=== PATIENT | male | born 1965 | race Caucasian/White ===

== ENCOUNTER 2017-11-19 10:39 | Emergency (ER) | payer SELFPAY ==
[2017-11-19 10:39] VITALS: BP 171/91; PULSE 68; RESP 22; TEMP 36.7; O2SAT 98
--- NOTE | 2017-11-19 10:59 | DI.RAD_ITS ---
SYMPTOMS/DIAGNOSIS: RIGHT LOW BACK PAIN, PREVIOUS HARDWARE LUMBOSACRAL SPINE: The patient is status post posterior fusion at the L5-S1 level with pedicle screws and rods. The vertebral bodies are intact. There is disc narrowing at L5-S1 where discogenic sclerosis is apparent. Also, there is mild narrowing of the L4-5 disc interspace. The pedicles, spinous and transverse processes appear intact. The sacrum and sacroiliac joints are unremarkable. SUMMARY: Postsurgical changes involving the lower lumbar spine are demonstrated. There is some narrowing of the L4-5 disc interspace. There is no evidence of a fracture or dislocation.
--- NOTE | 2017-11-19 11:01 | ED.GENADUL_ITS ---
Discharge Plan Disposition Patient Disposition: HOME Condition: Improving Discharge Details Chief Complaint: Nk/Back Pain Clinical Impression: Lumbar strain Reason For Visit: VALERI Primary Care Provider: [facility] Provider: Brendon Marsh Home Meds and New Rx's Prescriptions: New methocarbamol 500 mg tablet 500 mg PO QID PRN (Reason: back pain) Qty: 10 RF: 0 oxycodone 5 mg capsule 5 mg PO Q4H PRN (Reason: severe pain) Qty: 7 RF: 0 Continue lisinopril 5 mg Tablet 5 mg PO DAILY RF: 0 mirtazapine 15 mg Tablet 15 mg PO HS RF: 0 Discharge Instructions Instructions: Low Back Strain (ED) Additional Instructions: Home to rest today. No lifting greater than 8 pounds. Please follow-up with physical therapy as prescribed. Remove the Lidoderm patch in 12 hours. May continue regular medications and use the prescribed medications if needed for severe pain. Return to the emergency department for worsening discomfort or any other acute concerns Stand Alone Forms: Physical Therapy Referral Medical Decision Making 52-year-old male with chronic low back pain status post previous fixation. He presents with abrupt onset of recurrent pain after bending over and pulling out a tire iron. He has normal motor strength and sensation throughout the lower extremity with positive reflexes that are symmetric. Patient was given parenteral analgesia and referred for x-ray to rule out underlying fracture or disruption of hardware. The radiographs are unremarkable. Following medications patient is able to ambulate with improvement of his pain. He has good heel strike and no focal motor or neurologic deficits. We will treat with topical Lidoderm for 12 hours, I did consented for the use of narcotic analgesia and prescribed him a small number. He also prescribed methocarbamol. I will refer him to physical therapy. Stable for outpatient management at this time per HPI General Mode of arrival: EMS . Date/Time Provider Initiated Documentation: 11/19/17 10:48 . Limitations to Documentation: no limitations . Information obtained by: patient and EMS . History of Present Illness 52 year old M presents to the emergency department with the chief complaint of Back pain, described as severe, Quality is described as constant, and is localized to the back and right. Patient started experiencing this hour(s) and it has been constant. No relieving factors improve symptom(s), No exacerbating factors reported . Patient did receive the following treatments prior to arrival, other (FentANYL) HPI Narrative: 52-year-old male with history of previous lumbar spine fixation, states he was bent over pulling on a tire iron and felt a snap in his low back. Since that time he said constant, severe pain. Did not have numbness, tingling, weakness. Related Data Home Medications Medication Instructions Recorded Confirmed lisinopril 5 mg PO DAILY 11/19/17 11/19/17 methocarbamol 500 mg PO QID PRN #10 tab 11/19/17 mirtazapine 15 mg PO HS 11/19/17 11/19/17 oxycodone 5 mg PO Q4H PRN #7 cap 11/19/17 Previous Rx's Medication Instructions Recorded methocarbamol 500 mg PO QID PRN #10 tab 11/19/17 oxycodone 5 mg PO Q4H PRN #7 cap 11/19/17 Allergies Allergy/AdvReac Type Severity Reaction Status Date / Time acetaminophen Allergy Unverified 11/19/17 10:46 General Stated Complaint: Nk/Back Pain THI: 3 PFSH Social History Smoking/Tobacco Use Status: Current every day Exam Narrative Exam Narrative: GEN: awake, alert, oriented 3. Pleasant, well groomed, interactive. HEAD: Normocephalic, atraumatic ENT: Mucous membranes moist, oropharynx unremarkable, External ear exam unremarkable EYES: PERRL, EOMI NECK: Full ROM, no SELINA, no menigismus CHEST/RESP: Nontender, clear to auscultation bilateral, no wheeze/rhonchi/rales CARDIOVASCULAR: RRR, no murmur, rub natasha. 2+ Rad pulse bilateral Back: Tender in the lumbar region without focality. Paraspinous muscular spasm present ABDOMEN: Soft, nontender, no mass. +Bowel sounds EXT: Full ROM, no edema, no rash Neuro: Grossly normal neurologic exam, conversant, interactive. Motor 5 out of 5, reflex 1+ at the patella and ankle bilaterally. Sensation including cell distribution is intact Psych: Speech fluent, thoughts congruent, affect normal Course Vital Signs Temperature 36.7 C 11/19/17 10:39 Pulse 68 11/19/17 10:39 Respiratory Rate 22 11/19/17 10:39 Blood Pressure 171/91 H 11/19/17 10:39 Pulse Oximetry 98 11/19/17 10:39 Temperature 36.7 C 11/19/17 10:39 Temperature Source Skin 11/19/17 10:39 Pulse 68 11/19/17 10:39 Respiratory Rate 22 11/19/17 10:39 Respiratory Effort 11/19/17 10:48 Blood Pressure 171/91 H 11/19/17 10:39 Blood Pressure Position Supine 11/19/17 10:39 Pulse Oximetry 98 11/19/17 10:39 Pain Level 7 11/19/17 10:50
[2017-11-19] MEDS: Ketorolac 30 MG/ML VIAL IVP (11:40)
[2017-11-19] MEDS: HYDROmorphone 2 MG/ML VIAL 1 MG IVP ×2 (11:43→13:57)
[2017-11-19 11:50] LABS: Abs Immature Grans 0.01 k/cumm (0.0-0.09); Absolute Basophil Count 0.04 k/cumm (0.0-0.2); Absolute Eosinophil Count 0.19 k/cumm (0.0-0.7); Absolute Monocyte Count 0.81 k/cumm (0.11-0.7); Absolute Neutrophil Count 4.89 k/cumm (1.2-6.7); Basophils % 0.5; Eosinophils % 2.4; HCT 45.7 % (40.0-50.0); HGB 15.8 g/dL (13.5-17.5); Immature Grans % 0.1; Lymphocytes % 24.2; Mean Corp. HGB Concentration 34.6 g/dL (32.0-36.0); Mean Corpuscular Hemoglobin 32.8 pg (27.0-33.0); Monocytes % 10.3; Neutrophils % 62.5; Platelet Count 206 x1000/uL (130-400); RBC 4.81 m/cumm (4.50-6.00); White Blood Cell Count 7.84 k/cumm (4.4-10.8)
[2017-11-19 12:00] LABS: Anion Gap 5.8 mmol/L (3-11); BUN 16 mg/dL (7-18); CO2 28.2 mmol/L (21.0-32.0); CREATININE 1.06 mg/dL (0.70-1.30); Calcium 8.2 mg/dL (8.5-10.1); Chloride 106 mmol/L (98-107); Glucose 95 mg/dL (70-100); Sodium 140 mmol/L (136-145)
[2017-11-19 13:23] VITALS: BP 173/109; RESP 20; TEMP 36.8; O2SAT 96
[2017-11-19] MEDS: Lidocaine 5% Patch 1 PATCH TP (14:00)
== END 2017-11-19 14:53 | disposition home or self-care (01) ==
PROVIDERS: Emergency Provider Emergency Medicine
DX: S39.012A Strain of muscle, fascia and tendon of lower back, initial encounter (principal); X50.9XXA Other and unspecified overexertion or strenuous movements or postures, initial encounter; E11.9 Type 2 diabetes mellitus without complications; I10 Essential (primary) hypertension
CPT/HCPCS: 36415; 80048; 96374; 96375; 96376; 99284; 72110; 85025; J1885

== ENCOUNTER 2018-02-16 21:30 | Emergency (ER) | payer OTHER, SELFPAY ==
[2018-02-16] VITALS (17 sets, daily range): BP systolic 116–156; BP diastolic 57–88; PULSE 56–67; RESP 11–24; TEMP 36.8; O2SAT 90–97
--- NOTE | 2018-02-16 21:30 | DI.RAD_ITS ---
SYMPTOMS/DIAGNOSIS: LEFT-SIDED CHEST PAIN PORTABLE AP CHEST: The heart is not enlarged. The lungs appear grossly clear and well expanded. CONCLUSION: No evidence of acute disease.
[2018-02-16] MEDS: Normal Saline 1,000 ML 1000 ML IV (21:45)
[2018-02-16] MEDS: LORazepam 2 MG/ML VIAL 1 MG IVP (21:45)
[2018-02-16 22:01] LABS: Abs Immature Grans 0.02 k/cumm (0.0-0.09); Absolute Basophil Count 0.03 k/cumm (0.0-0.2); Absolute Eosinophil Count 0.14 k/cumm (0.0-0.7); Absolute Lymphocyte Count 2.92 k/cumm (1.2-3.4); Basophils % 0.2; Eosinophils % 1.1; HCT 43.9 % (40.0-50.0); HGB 15.6 g/dL (13.5-17.5); Immature Grans % 0.2; Lymphocytes % 22.7; Mean Corp. HGB Concentration 35.5 g/dL (32.0-36.0); Mean Corpuscular Volume 92.8 fL (80-95); Mean Platelet Volume 10.9 fL (8.0-11.0); Monocytes % 10.3; Neutrophils % 65.5; Platelet Count 242 x1000/uL (130-400); RBC 4.73 m/cumm (4.50-6.00); RBC Distribution Width 12.3 % (11.8-14.1); White Blood Cell Count 12.87 k/cumm (4.4-10.8)
--- NOTE | 2018-02-16 22:01 | W.ED.GENAD ---
Discharge Plan Disposition Patient Disposition: HOME Condition: Good Discharge Details Chief Complaint: Chest Pain Clinical Impression: Chest pain, Anxiety Reason For Visit: VALERI Primary Care Provider: Elis,Local ED Provider: Lewis Soriano Home Meds and New Rx's Prescriptions: No Action lisinopril 5 mg Tablet 5 mg PO DAILY RF: 0 mirtazapine 15 mg Tablet 15 mg PO HS RF: 0 methocarbamol 500 mg tablet 500 mg PO QID PRN (Reason: back pain) Qty: 10 RF: 0 oxycodone 5 mg capsule 5 mg PO Q4H PRN (Reason: severe pain) Qty: 7 RF: 0 Discharge Instructions Instructions: Chest Pain (ED), Anxiety (ED) Additional Instructions: If you notice any worsening of your symptoms, or any new symptoms such as vomiting, diarrhea, fever, chills, shortness of breath, chest pain, numbness, weakness, or fainting , please return immediately to the emergency department for reevaluation. Please follow up with your primary care provider as soon as possible for reassessment and reevaluation. As always, it was a pleasure participating in your medical care today. Medical Decision Making This is a 52-year-old male who presents for evaluation of chest pain. Patient recently just got booked into longterm today and while there he became extremely nervous, began feeling overwhelmed, at the same time began developing some mild left-sided chest pain. It is reproducible on exam. There is no exertional component, no radiation. No red flags of tearing sensation, and equal radial pulses, no trauma. No cocaine use. No red flags for pulmonary embolism. Vital signs are reassuring with a normal heart rate, normal oxygen saturation, and normal respiration rate. Due to the patient's notable anxiety 1 mg of Ativan will be given. We will hold off on nitroglycerin who is a Bovie. EMS did give 325 aspirin. EKG shows no signs of STEMI. A concerned that this patient's symptoms may be secondary to a anxiety component, however because of his risk factors we will perform a cardiac workup. 10 PM After the Ativan administration the patient's chest pain completely resolved. He is feeling much better and no longer feels anxious. Repeat EKG continues to show no abnormalities no evidence of STEMI. With the patient's resolution of his symptoms with his anxiety resolution, and with his benign EKG, negative troponin do not feel that his signs or symptoms are clinically consistent with a cardiac etiology. We will get a 3-hour troponin, and if this is negative the patient will be discharged home with close follow-up. 12: 50 a.m. 3-hour troponin has returned, which is actually 5 hours after his initial symptoms onset, this is negative. Heart score is in the low risk category. vital signs continue to remain stable and reassuring. Laboratory workup is benign. Chest x-ray is negative for acute process. The patient's symptoms completely resolved as soon as the Ativan was given and he was able to calm down. With signs and symptoms clinically consistent with anxiety as the cause of his symptomatology and negative serial troponins and negative serial EKGs, I feel that the patient be reasonably and safely discharged with close follow-up with his PCP through the [facility]. We discussed red flags which return the patient understands peer I have extensively reviewed the treatment plan and discharge instructions with the patient. I have addressed all patient concerns at this time. The patient was made aware of what symptoms to monitor for that would warrant a return to the emergency department. Discussed the plan with the patient, they demonstrate verbal understanding and agreement with our assessment and plan at this time. EKG 21: 32 Rate 64, [place] 202, QTc 396, QRS 96, sinus rhythm, no significant ST elevations or depressions, no T wave inversions. No evidence of STEMI. Review of prior EKG from 12/15/13 demonstrates no other significant abnormalities or changes. Findings are similar and consistent. EKG 22: 55 Rate 61, intervals normal, sinus rhythm, no significant ST elevations or depressions, no significant T wave inversions or Q waves. No significant abnormalities. No evidence of STEMI. FINDINGS: Lungs: No consolidation. Portable study, low volumes. Pleural space: No significant pleural effusion. No pneumothorax. Heart/Mediastinum: No cardiomegaly. Bones/joints: No acute fracture. IMPRESSION: Negative portable study. Dictated and Authenticated by: Alessandra Roberts MD. HPI General Date/Time Provider Initiated Documentation: 02/16/18 22:00. HPI Narrative: This is a 52-year-old male with a past medical history of diabetes, hypertension, high cholesterol, tobacco abuse, who presents today for evaluation of chest pain. The patient was recently arrested today, and he was being booked for longterm when he states that he began to get extremely nervous and anxious, and then at the same time developed chest pain. This occurred roughly 1 hour prior to arrival. Is on the left side of his chest. He denies any exertional component. He denies any pleuritic chest pain. He did initially admit to minimal shortness of breath but denies any currently. He describes the pain as a stabbing-like sensation in his left chest. There is no radiation down his arms or up his neck. There is no tearing sensation. Patient denies any other aggravating or modifying factors. Patient has had chest pain in the past, he has had multiple stress test at [facility] in the past 4 years that have been negative for any acute process. Patient states that he does have a history of getting chest pain when he gets very anxious, and he does feel very anxious. Patient's family history is positive for cardiac disease at an older age. EMS did give the patient 325 aspirin. They did not give any nitroglycerin. Patient has no other complaints at this time. Denies PE risk factors such as recent long car rides, immobilization, recent surgery, prior history of DVT or PE, family history of PE or DVT, morbid obesity, exogenous estrogen and smoking, hemoptysis, history of cancer. Related Data Home Medications Medication Instructions Recorded Confirmed lisinopril 5 mg PO DAILY 11/19/17 11/19/17 methocarbamol 500 mg PO QID PRN #10 tab 11/19/17 mirtazapine 15 mg PO HS 11/19/17 11/19/17 oxycodone 5 mg PO Q4H PRN #7 cap 11/19/17 Previous Rx's Medication Instructions Recorded methocarbamol 500 mg PO QID PRN #10 tab 11/19/17 oxycodone 5 mg PO Q4H PRN #7 cap 11/19/17 Allergies Allergy/AdvReac Type Severity Reaction Status Date / Time acetaminophen Allergy Unverified 02/16/18 23:00 General THI: 3 Review of Systems Review of Systems All systems reviewed & are unremarkable except as noted in HPI and below PFSH Social History Smoking/Tobacco Use Status: Current every day Exam Narrative Exam Narrative: 1.Const: Well-nourished, Well-developed, appearing stated age 2.Eyes: PERRL, no conjunctival injection, and symmetrical lids. 3.ENT: Atraumatic external nose and ears. Moist MM. Neck: Symmetric, trachea midline, No thyromegaly. 4.CVS: +S1/S2, No murmurs or gallops. Peripheral pulses 2+ and equal in all extremities. Brisk capillary refill in all extremities. Notable reproducible chest pain on palpation of his left chest. Radial pulses are equal bilaterally. No evidence of trauma in the chest. 5.RESP: Unlabored respiratory effort. Clear to auscultation bilaterally. No wheezes rales or rhonchi 6.GI: Soft, Nontender/Nondistended, No hepatosplenomegaly. No guarding or rebound. 7.MSK: Normocephalic/Atraumatic, Extremities w/o deformity or ttp No cyanosis or clubbing, Normal movement of all extremities 8.Skin: Warm, Dry. No rashes or lesions. 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 Sensation grossly intact, no focal neurologic deficits. 10.Psych: (AAO) x3. Patient appears extremely anxious, and extremely unsettled. He also actively admits to this.
[2018-02-16 22:02] LABS: Absolute Monocyte Count 1.33 k/cumm (0.11-0.7); Absolute Neutrophil Count 8.43 k/cumm (1.2-6.7)
--- NOTE | 2018-02-16 22:06 | DI.VRAD_ITS ---
EXAM: XR Chest, 1 View EXAM DATE/TIME: 02/16/2018 9:31 PM CLINICAL HISTORY: 52 years old, male; Pain; Chest pain; Left-sided chest pain TECHNIQUE: XR of the chest, 1 view. COMPARISON: No relevant prior studies available. FINDINGS: Lungs: No consolidation. Portable study, low volumes. Pleural space: No significant pleural effusion. No pneumothorax. Heart/Mediastinum: No cardiomegaly. Bones/joints: No acute fracture. IMPRESSION: Negative portable study. Dictated and Authenticated by: Alessandra Roberts MD. Ordering:SIOBHAN Saucedo MD
[2018-02-16 22:17] LABS: ALT 29 U/L (12-78); AST 20 U/L (15-37); Albumin 3.8 g/dL (3.4-5.0); Alkaline Phosphatase 100 U/L (46-116); Anion Gap 7.9 mmol/L (3-11); BUN 17 mg/dL (7-18); Bilirubin, Total 0.5 mg/dL (0.2-1.0); CO2 27.1 mmol/L (21.0-32.0); CREATININE 1.17 mg/dL (0.70-1.30); Calcium 8.7 mg/dL (8.5-10.1); Chloride 105 mmol/L (98-107); Glucose 80 mg/dL (70-100); Potassium 3.7 mmol/L (3.5-5.1); Sodium 140 mmol/L (136-145); Total Protein 7.9 g/dL (6.4-8.2); Troponin I < 0.02 ng/mL (0.00-0.06)
--- NOTE | 2018-02-16 23:02 | ED.GENADUL_ITS ---
Discharge Plan Disposition Patient Disposition: HOME Condition: Good Discharge Details Chief Complaint: Chest Pain Clinical Impression: Chest pain, Anxiety Reason For Visit: VALERI Primary Care Provider: Elis,Local ED Provider: Lewis Soriano Home Meds and New Rx's Prescriptions: No Action lisinopril 5 mg Tablet 5 mg PO DAILY RF: 0 mirtazapine 15 mg Tablet 15 mg PO HS RF: 0 methocarbamol 500 mg tablet 500 mg PO QID PRN (Reason: back pain) Qty: 10 RF: 0 oxycodone 5 mg capsule 5 mg PO Q4H PRN (Reason: severe pain) Qty: 7 RF: 0 Discharge Instructions Instructions: Chest Pain (ED), Anxiety (ED) Additional Instructions: If you notice any worsening of your symptoms, or any new symptoms such as vomiting, diarrhea, fever, chills, shortness of breath, chest pain, numbness, weakness, or fainting , please return immediately to the emergency department for reevaluation. Please follow up with your primary care provider as soon as possible for reassessment and reevaluation. As always, it was a pleasure participating in your medical care today. Medical Decision Making This is a 52-year-old male who presents for evaluation of chest pain. 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 It is reproducible on exam. There is no exertional component, no radiation. No red flags of tearing sensation, and equal radial pulses, no trauma. No cocaine use. No red flags for pulmonary embolism. Vital signs are reassuring with a normal heart rate, normal oxygen saturation, and normal respiration rate. Due to the patient's notable anxiety 1 mg of Ativan will be given. We will hold off on nitroglycerin who is a Bovie. EMS did give 325 aspirin. EKG shows no signs of STEMI. A concerned that this patient's symptoms may be secondary to a anxiety component, however because of his risk factors we will perform a cardiac workup. 10 PM After the Ativan administration the patient's chest pain completely resolved. He is feeling much better and no longer feels anxious. Repeat EKG continues to show no abnormalities no evidence of STEMI. With the patient's resolution of his symptoms with his anxiety resolution, and with his benign EKG, negative troponin do not feel that his signs or symptoms are clinically consistent with a cardiac etiology. We will get a 3-hour troponin, and if this is negative the patient will be discharged home with close follow-up. 12: 50 a.m. 3-hour troponin has returned, which is actually 5 hours after his initial sy mptoms onset, this is negative. Heart score is in the low risk category. vital signs continue to remain stable and reassuring. Laboratory workup is benign. Chest x-ray is negative for acute process. The patient's symptoms completely resolved as soon as the Ativan was given and he was able to calm down. With signs and symptoms clinically consistent with anxiety as the cause of his symptomatology and negative serial troponins and negative serial EKGs, I feel that the patient be reasonably and safely discharged with close follow-up with his PCP through the [facility]. We discussed red flags which return the patient understands peer I have extensively reviewed the treatment plan and discharge instructions with the patient. I have addressed all patient concerns at this time. The patient was made aware of what symptoms to monitor for that would warrant a return to the emergency department. Discussed the plan with the patient, they demonstrate verbal understanding and agreement with our assessment and plan at this time. EKG 21: 32 Rate 64, [place] 202, QTc 396, QRS 96, sinus rhythm, no significant ST elevations or depressions, no T wave inversions. No evidence of STEMI. Review of prior EKG from 12/15/13 demonstrates no other significant abnormalities or changes. Findings are similar and consistent. EKG 22: 55 Rate 61, intervals normal, sinus rhythm, no significant ST elevations or depressions, no significant T wave inversions or Q waves. No significant abnormalities. No evidence of STEMI. FINDINGS: Lungs: No consolidation. Portable study, low volumes. Pleural space: No significant pleural effusion. No pneumothorax. Heart/Mediastinum: No cardiomegaly. Bones/joints: No acute fracture. IMPRESSION: Negative portable study. Dictated and Authenticated by: Alessandra Roberts MD. HPI General Date/Time Provider Initiated Documentation: 02/16/18 22:00 . HPI Narrative: This is a 52-year-old male with a past medical history of diabetes, hypertension, high cholesterol, tobacco abuse, who presents today for evaluation of chest pain. The patient was recently arrested today, and he was being booked for correction when he states that he began to get extremely nervous and anxious, and then at the same time developed chest pain. This occurred roughly 1 hour prior to arrival. Is on the left side of his chest. He denies any exertional component. He denies any pleuritic chest pain. He did initially admit to minimal shortness of breath but denies any currently. He describes the pain as a stabbing-like sensation in his left chest. There is no radiation down his arms or up his neck. There is no tearing sensation. Patient denies any other aggravating or modifying factors. Patient has had chest pain in the past, he has had multiple stress test at [facility] in the past 4 years that have been negative for any acute process. Patient states that he does have a history of getting chest pain when he gets very anxious, and he does feel very anxious. Patient's family history is positive for cardiac disease at an older age. EMS did give the patient 325 aspirin. They did not give any nitroglycerin. Patient has no other complaints at this time. Denies PE risk factors such as recent long car rides, immobilization, recent surgery, prior history of DVT or PE, family history of PE or DVT, morbid obesity, exogenous estrogen and smoking, hemoptysis, history of cancer. Related Data Home Medications Medication Instructions Recorded Confirmed lisinopril 5 mg PO DAILY 11/19/17 11/19/17 methocarbamol 500 mg PO QID PRN #10 tab 11/19/17 mirtazapine 15 mg PO HS 11/19/17 11/19/17 oxycodone 5 mg PO Q4H PRN #7 cap 11/19/17 Previous Rx's Medication Instructions Recorded methocarbamol 500 mg PO QID PRN #10 tab 11/19/17 oxycodone 5 mg PO Q4H PRN #7 cap 11/19/17 Allergies Allergy/AdvReac Type Severity Reaction Status Date / Time acetaminophen Allergy Unverified 02/16/18 23:00 General THI: 3 Review of Systems Review of Systems All systems reviewed & are unremarkable except as noted in HPI and below PFSH Social History Smoking/Tobacco Use Status: Current every day Exam Narrative Exam Narrative: 1.Const: Well-nourished, Well-developed, appearing stated age 2.Eyes: PERRL, no conjunctival injection, and symmetrical lids. 3.ENT: Atraumatic external nose and ears. Moist MM. Neck: Symmetric, trachea midline, No thyromegaly. 4.CVS: +S1/S2, No murmurs or gallops. Peripheral pulses 2+ and equal in all extremities. Brisk capillary refill in all extremities. Notable reproducible chest pain on palpation of his left chest. Radial pulses are equal bilaterally. No evidence of trauma in the chest. 5.RESP: Unlabored respiratory effort. Clear to auscultation bilaterally. No wheezes rales or rhonchi 6.GI: Soft, Nontender/Nondistended, No hepatosplenomegaly. No guarding or rebo und. 7.MSK: Normocephalic/Atraumatic, Extremities w/o deformity or ttp No cyanosis or clubbing, Normal movement of all extremities 8.Skin: Warm, Dry. No rashes or lesions. 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 Sensation grossly intact, no focal neurologic deficits. 10.Psych: (AAO) x3. Patient appears extremely anxious, and extremely unsettled. He also actively admits to this.
[2018-02-17] VITALS (10 sets, daily range): BP systolic 134–142; BP diastolic 59–77; PULSE 54–68; RESP 12–22; O2SAT 91–96
[2018-02-17 00:49] LABS: Troponin I < 0.02 ng/mL (0.00-0.06)
== END 2018-02-17 01:05 | disposition home or self-care (01) ==
PROVIDERS: Emergency Provider Student in an Organized Health Care Education/Training Program
DX: R07.9 Chest pain, unspecified (principal); F41.9 Anxiety disorder, unspecified; I10 Essential (primary) hypertension; E11.9 Type 2 diabetes mellitus without complications; F17.210 Nicotine dependence, cigarettes, uncomplicated
CPT/HCPCS: 36415; 80053; 93005; 96361; 96374; 99285; 71045; 84484; 85025; 93010; J2060

== ENCOUNTER 2019-03-24 06:07 | Observation (INO) | payer SELFPAY ==
[2019-03-24] VITALS (82 sets, daily range): BP systolic 113–189; BP diastolic 54–107; PULSE 60–95; RESP 4–32; TEMP 36.2–38.3; O2SAT 88–100
--- NOTE | 2019-03-24 06:20 | DI.RAD_ITS ---
EXAM: XR PORTABLE CHEST AP INDICATION: chest pain and SOB. COMPARISON: XR PORTABLE CHEST AP from 02/16/2018 TECHNIQUE: 2D digital imaging was performed. FINDINGS: The heart size is within normal limits for projection. The lungs are moderately well inflated and c lear. No infiltrate, effusion or pneumothorax is seen. IMPRESSION: Negative portable chest.
--- NOTE | 2019-03-24 06:23 | W.ED.GENAD ---
Discharge Plan Disposition Patient Disposition: [facility] INPATIENT Condition: Stable Discharge Details Chief Complaint: Chest Pain Clinical Impression: ACS (acute coronary syndrome) Primary Care Provider: Elis,Local ED Provider: Durga Jhaveri Home Meds and New Rx's Prescriptions: No Action No Known Home Meds RF: 0 Medical Decision Making In reviewing records from [facility], which appears to be his primary source of medical care, there is no report of myocardial infarction. He has not been cathed. He did have a stress echo in 2013 which was normal. He does have risk factors including high blood pressure, high cholesterol, diabetes, obesity and smoking. His initial EKG here is sinus rhythm at 72. He has normal axis and intervals. He has ST depression in inversion in the lateral leads. He has mild 1 box elevation in V1 through V3 but nothing that reaches STEMI criteria. His pain is all anterior without radiation. He had received aspirin and 2 sublingual nitroglycerin in route. I will start him on a nitroglycerin drip. He is given Xopenex for the wheezing. Laboratory studies are ordered. Portable chest x-ray is ordered. I do not suspect this to be PE or dissection. Suspect the wheezing is related to his smoking and COPD but suspect the pain, diaphoresis, lightheadedness is related to myocardial ischemia. Patient is responding to the IV nitroglycerin and his pain is getting better. A repeat EKG done about 1/2-hour later is unchanged. Continues to have lateral ST depression in inversion with continued slight ST elevation. Laboratory studies show a normal white count and hemoglobin. Chemistries show a little bit of renal insufficiency. Electrolytes are reasonable. LFTs normal. First troponin negative. Once chest x-ray is obtained if there is no evidence of mediastinal widening I will start heparin. I will be contacting [facility] to discuss potential transfer. 07:30 -chest x-ray shows no acute pathology. Normal-looking mediastinum. Heparin is started per ACS protocol. Second Xopenex neb is given. Patient does report feeling better but still looks ill and anxious. Discussed with cardiology at [facility]. Agree with management at this time. They have reviewed EKG. They have accepted the patient for admission there under cardiology but will not have a bed until later this afternoon. Continue Xopenex. Plavix load given. Continue nitroglycerin and heparin. Patient given low-dose Ativan IV for anxiety. Will discuss with hospitalist for placement in the ICU until [facility] able to take later this afternoon. Medical Records Medical records reviewed: Yes I reviewed the patient's medical records. Lab Data Lab results reviewed: Yes I reviewed the patient's lab results. ECG Data Attestation: I personally reviewed and interpreted this ECG (s) as follows: Prior ECG tracings: available for review Interpretation: EKG #1: Sinus rhythm at 72. Normal axis and intervals. Mild ST elevation in the septal leads. Nonspecific ST changes in the lateral leads. Slightly different than previous done in 2018. EKG #2: Continues to be sinus rhythm with normal axis and intervals and no change in the ST segments done about 30 minutes prior. HPI General Mode of arrival: EMS. Date/Time Provider Initiated Documentation: 03/24/19 06:20. Limitations to Documentation: no limitations. Information obtained by: patient, EMS, RN notes reviewed and old records reviewed. HPI Narrative: Patient presents to ED by ambulance with complaint of chest pain and shortness of breath. Patient reports being up most of the night just not feeling right. Somewhere around 2 AM he started to experience chest discomfort. It has become progressively worse and is associated with lightheadedness, diaphoresis, nausea and increasing shortness of breath. He has chronic back pain which is unchanged. There is no radiation of the chest pain to his back, shoulders or neck. He has no numbness or weakness anywhere. He has had no real illness to speak of. Little bit of a cough and may be some congestion. He has no abdominal pain. He has no leg pain or leg swelling. He reports having a myocardial infarction but he was never catheterized, denies having a stent and does not see a cleaning handyman. He is not compliant with his medications though he reports losing a lot of weight in being able to come off a lot of his medications. Related Data Home Medications Medication Instructions Recorded Confirmed Unknown [No Known Home Meds] 03/24/19 03/24/19 Allergies Allergy/AdvReac Type Severity Reaction Status Date / Time acetaminophen Allergy Unverified 03/24/19 07:44 General Stated Complaint: Chest Pain THI: 2 Review of Systems Unobtainable due to (Not obtained due to acuity of situation) [facility] Medical History Diabetes mellitus (Chronic) HTN (hypertension) (Chronic) Hypercholesterolemia (Chronic) Surgical History Previous back surgery (Acute) Status post open reduction with internal fixation of fracture (Acute) Right ankle ORIF Social History Smoking/Tobacco Use Status: Current every day Alcohol Intake: never Drug use: Occasionally Substance use type: marijuana Do you feel safe at home: Yes Do you feel safe in your relationship?: Yes Exam Narrative Exam Narrative: Vitals: Afebrile. Hypertensive. Normal heart rate. Reasonable mid 90s saturation for smoker. Const: Obese male who is uncomfortable and diaphoretic. HEENT: NC/AT. Normal facial exam. Eyes: Normal conjunctiva and sclera. Neck: Supple. Trachea midline. Lungs: Normal respiratory effort. Lungs with wheezing throughout. Cor: RRR with systolic murmur. Good radial pulses. GI: Soft. NT/ND. No guarding or rebound. Neuro: A+O x 3. Normal speech, mentation, gait. Cranial nerves II - XII grossly intact. No gross motor or sensory deficit. Ext: No C/C/E. Skin: Warm and diaphoretic. Course Vital Signs Vital signs: Vital Signs Temperature 98.6 F 03/24/19 06:12 Pulse 84 03/24/19 06:12 Respiratory Rate 03/24/19 06:12 Blood Pressure 163/107 H 03/24/19 06:12 Pulse Oximetry 94 L 03/24/19 06:12 Temperature 98.6 F 03/24/19 06:12 Temperature Source Skin 03/24/19 06:12 Pulse 84 03/24/19 06:12 Respiratory Rate 03/24/19 06:12 Respiratory Effort 03/24/19 06:21 Blood Pressure 163/107 H 03/24/19 06:12 Blood Pressure Position Supine 03/24/19 06:12 Pulse Oximetry 94 L 03/24/19 06:12 Oxygen Delivery Method Nasal Cannula 03/24/19 06:12 Oxygen Flow Rate 2 03/24/19 06:12 Pain Level 8 03/24/19 06:12 Critical Care Time Critical Care Time Critical Care Time: Yes Total Critical Care Time: 60 Attestation: Upon my evaluation, this patient had a high probability of imminent or life-threatening deterioration, which required my direct attention, intervention, and personal management. I have personally provided minutes of critical care time exclusive of time spent on separately billable procedures. Time includes review of laboratory data, radiology results, discussion with consultants, and monitoring for potential decompensation. Interventions were performed as documented above.
[2019-03-24 06:25] LABS: Abs Immature Grans 0.01 k/cumm (0.0-0.09); Absolute Basophil Count 0.04 k/cumm (0.0-0.2); Absolute Lymphocyte Count 2.17 k/cumm (1.2-3.4); Absolute Monocyte Count 1.28 k/cumm (0.11-0.7); Absolute Neutrophil Count 6.17 k/cumm (1.2-6.7); Basophils % 0.4; HCT 42.3 % (40.0-50.0); HGB 14.6 g/dL (13.5-17.5); Immature Grans % 0.1 %; Mean Corp. HGB Concentration 34.5 g/dL (32.0-36.0); Mean Corpuscular Volume 95.5 fL (80-95); Mean Platelet Volume 10.7 fL (8.0-11.0); Neutrophils % 62.5; Platelet Count 234 x1000/uL (130-400); RBC 4.43 m/cumm (4.50-6.00); RBC Distribution Width 12.3 % (11.8-14.1); White Blood Cell Count 9.87 k/cumm (4.4-10.8)
[2019-03-24] MEDS: Levalbuterol 1.25 MG/3 ML UPD VIAL UPD ×2 (06:34→07:10)
[2019-03-24] MEDS: Normal Saline 1,000 ML 125 ML IV ×2 (06:35→14:26)
[2019-03-24 06:38] LABS: INR 1.1 (0.9-1.1); PTT Activated 29.1 sec (21.0-31.4); Prothrombin Time 10.7 sec (9.3-11.0)
[2019-03-24 06:40] LABS: ALT 25 U/L (16-63); AST 18 U/L (15-37); Albumin 3.5 g/dL (3.4-5.0); Alkaline Phosphatase 97 U/L (46-116); Anion Gap 7.1 mmol/L (3-11); BUN 23 mg/dL (7-18); Bilirubin, Total 0.2 mg/dL (0.2-1.0); CO2 29.9 mmol/L (21.0-32.0); CREATININE 1.31 mg/dL (0.70-1.30); Calcium 8.2 mg/dL (8.5-10.1); Chloride 105 mmol/L (98-107); Estimated GFR 57.02 (mL/min/1.73m2); Glucose 129 mg/dL (74-106); Magnesium 1.7 mg/dL (1.8-2.4); Potassium 3.8 mmol/L (3.5-5.1); Sodium 142 mmol/L (136-145); Troponin I < 0.05 ng/Ml (<0.06)
[2019-03-24] MEDS: MORPHine 10 MG/ML VIAL 2 MG IVP (07:00)
--- NOTE | 2019-03-24 07:06 | DI.VRAD_ITS ---
PROCEDURE INFORMATION: Exam: XR Chest, 1 View Exam date and time: 03/24/2019 6:22 AM Age: 54 years old Clinical indication: Other: Chest pain and SOB TECHNIQUE: Imaging protocol: XR of the chest Views: 1 view. COMPARISON: SC XR PORTABLE CHEST AP 02/16/2018 9:46 PM FINDINGS: Lungs: Mild chronic interstitial prominence, grossly stable. No consolidation. Pleural space: No pleural effusion. No pneumothorax. Heart/Mediastinum: Grossly stable. Bones/joints: Grossly stable IMPRESSION: No acute findings. Dictated and Authenticated by: Gilberto Hartley MD. Ordering:LEXY Calixto MD
[2019-03-24] MEDS: Clopidogrel 300 MG TAB PO (07:38)
[2019-03-24] MEDS: LORazepam 2 MG/ML VIAL 0.5 MG IVP (07:38)
[2019-03-24 09:56] LABS: Troponin I < 0.05 ng/Ml (<0.06)
[2019-03-24] MEDS: Nicotine 21 MG/24 HR PATCH TD (10:16)
[2019-03-24] MEDS: LORazepam 2 MG/ML VIAL (10:16)
[2019-03-24] MEDS: MORPHine 2 MG/ML SYR IVP ×4 (10:45→21:58)
[2019-03-24 13:04] LABS: Troponin I < 0.05 ng/Ml (<0.06)
[2019-03-24] MEDS: Pantoprazole 40 MG VIAL IVP ×2 (13:52→20:56)
--- NOTE | 2019-03-24 15:19 | HPE_ITS ---
Date of service: 03/24/19 Time of Service: 15:19 Assessment and Plan Assessment and plan (1) ACS (acute coronary syndrome): Status: Acute Assessment and plan: Patient has significant substernal chest pain with EKG changes. It certainly appears significant for an acute coronary syndrome and the appropriate treatments are in place. His troponin levels have not budged from less than 0.05?3. He had improvement after a bolus PPI injection of pantoprazole. It appears to be an atypical chest pain of noncardiac origin. Plan at this point is to set him up for MPI testing in the a.m. We will contin ue on the nitro infusion titrated to pain and the heparin infusion per protocol. Continue morphine and lorazepam for symptom management. Continue on twice daily PPI. (2) Hypercholesterolemia: Status: Chronic Assessment and plan: He is not been on any medication for lipid management. Will start him on atorvastatin prior to discharge. (3) HTN (hypertension): Status: Chronic Assessment and plan: Blood pressures have been reasonably stable since admission. Hold on blood pressure lowering medications at this time. (4) Diabetes mellitus: Status: Chronic Assessment and plan: Blood sugars appear to be reasonably controlled at this time. History of Present Illness History of Present Illness Chief Complaint: Chest pain Narrative: 54-year-old male that complained of severe substernal chest pain beginning 2 AM this morning. He initially thought it was a gas pain but it did not go away. It continued to get worse and accompanied by diaphoresis. He has had some nausea and lightheadedness and increasing shortness of breath. Patient has chronic back pain which is unchanged from its baseline. He was transported to the emergency room via EMS. He received sublingual nitroglycerin without much relief. He was started on a nitro glycerin infusion and heparin infusion. He received Plavix 300 mg p.o. x1 and aspirin 324 mg p.o. x1. His EKG showed what appeared to be ST elevations in V1 through V3. Dr. Jhaveri contacted [facility] cardiology regarding transfer. The cardiology team at [facility] did not feel this was an ST elevation TN. They recommended continuing current measures and trending his troponins. He was transferred to the ICU for further monitoring. Serial troponins came back less than 0.05?3. He received a dose of pantoprazole with near complete resolution of his symptoms. The transfer was canceled and arrangements were made for an inpatient MPI test to be done tomorrow. Plan is to keep him on the nitro and heparin until more definitive cardiac testing can be done. Review of Systems Narrative: Review of systems as per HPI. Patient has chronic lower back pain secondary to prior surgeries and tasneem placement. He describes peptic acid sy mptoms and has taken Tums on a regular basis in the past. He has never been diagnosed with peptic ulcer disease. He says he does have a history of an TN in the past. He had somewhat of a cardiac work-up done back in 2012 that showed a normal stress echocardiogram. [facility] Medical History Diabetes mellitus (Chronic) HTN (hypertension) (Chronic) Hypercholesterolemia (Chronic) Surgical History Previous back surgery (Acute) Status post open reduction with internal fixation of fracture (Acute) Right ankle ORIF Social History Smoking/Tobacco Use Status: Current every day Alcohol Intake: never Drug use: Occasionally Substance use type: marijuana Do you feel safe at home: Yes Do you feel safe in your relationship?: Yes Meds Home Medications and Allergies Home Medications Medication Instructions Recorded Confirmed Type Unknown [No Known Home Meds] 03/24/19 03/24/19 History Allergies Allergy/AdvReac Type Severity Reaction Status Date / Time acetaminophen Allergy Unverified 03/24/19 07:44 Exam Narrative Exam Narrative: On exam he is a moderately obese somewhat gruff appearing man in moderate distress. He was having rather severe substernal chest pain at the time of my exam. His lung exam showed a few scattered rhonchi but no specific rails. Good air movement both lungs. His heart sounds were regular and strong. He has a 2/6 holosystolic murmur heard best over the left upper sternal border. His abdomen is quite markedly obese but overall nontender to palpation. There is no palpable masses. The lower extremities show no evidence of edema. Neurologically he moves all extremities without any decrement of function. Results Imaging Chest x-ray: report reviewed (Negative portable chest) EKG: image reviewed (Evolving EKG changes that showed diminished ST segment elevation V1 through V3) Labs Result diagrams: 03/24/19 06:15 03/24/19 06:15 Labs: Laboratory Results - last 24 hr 03/24/19 03/24/19 03/24/19 06:15 06:15 06:15 WBC 9.87 RBC 4.43 L Hgb 14.6 Hct 42.3 MCV 95.5 H MCH 33.0 MCHC 34.5 RDW 12.3 Plt Count 234 MPV 10.7 Immature Gran % 0.1 Neutrophils % 62.5 Lymphocytes % 22.0 Monocytes % 13.0 Eosinophils % 2.0 Basophils % 0.4 Absolute Neutrophils 6.17 Absolute Lymphocytes 2.17 Absolute Monocytes 1.28 H Absolute Eosinophils 0.20 Absolute Basophils 0.04 PT 10.7 INR 1.1 APTT 29.1 Sodium 142 Potassium 3.8 Chloride 105 Carbon Dioxide 29.9 Anion Gap 7.1 BUN 23 H Creatinine 1.31 H Estimated GFR/1.73 m2 57.02 Glucose 129 H Calcium 8.2 L Magnesium 1.7 L Total Bilirubin 0.2 AST 18 ALT 25 Alkaline Phosphatase 97 Troponin I < 0.05 Total Protein 7.0 Albumin 3.5 03/24/19 03/24/19 03/24/19 09:30 12:43 12:43 WBC RBC Hgb Hct MCV MCH MCHC RDW Plt Count MPV Immature Gran % Neutrophils % Lymphocytes % Monocytes % Eosinophils % Basophils % Absolute Neutrophils Absolute Lymphocytes Absolute Monocytes Absolute Eosinophils Absolute Basophils PT INR APTT 55.0 H D Sodium Potassium Chloride Carbon Dioxide Anion Gap BUN Creatinine Estimated GFR/1.73 m2 Glucose Calcium Magnesium Total Bilirubin AST ALT Alkaline Phosphatase Troponin I < 0.05 < 0.05 Total Protein Albumin Last Vital Signs Temp 37 C 03/24/19 14:32 Pulse 80 03/24/19 14:32 Resp 14 03/24/19 14:32 BP 133/91 H 03/24/19 12:26 Pulse Ox 98 03/24/19 14:32
[2019-03-24] MEDS: Ondansetron 4 MG/2 ML VIAL IVP (21:26)
[2019-03-24] MEDS: MORPHine 10 MG/ML VIAL IVP (22:18)
[2019-03-24 22:33] LABS: Troponin I < 0.05 ng/Ml (<0.06)
[2019-03-25] VITALS (28 sets, daily range): BP systolic 110–169; BP diastolic 60–106; PULSE 64–89; RESP 4–95; TEMP 36.3–37.7; O2SAT 80–99
[2019-03-25] MEDS: Normal Saline 1,000 ML 125 ML IV (00:13)
[2019-03-25] MEDS: MORPHine 10 MG/ML VIAL IVP ×4 (01:00→07:44)
[2019-03-25] MEDS: Normal Saline Flush 10 ML SYR IVP ×6 (03:09→09:57)
[2019-03-25] MEDS: Ondansetron 4 MG/2 ML VIAL IVP (05:56)
[2019-03-25] MEDS: Levalbuterol 1.25 MG/3 ML UPD VIAL UPD (06:47)
[2019-03-25 07:24] LABS: HCT 38.2 % (40.0-50.0); Mean Corpuscular Hemoglobin 32.4 pg (27.0-33.0); Mean Corpuscular Volume 95.3 fL (80-95); Mean Platelet Volume 11.2 fL (8.0-11.0); Platelet Count 191 x1000/uL (130-400); RBC 4.01 m/cumm (4.50-6.00); RBC Distribution Width 12.1 % (11.8-14.1)
[2019-03-25 07:38] LABS: Anion Gap 8.4 mmol/L (3-11); BUN 11 mg/dL (7-18); CO2 27.6 mmol/L (21.0-32.0); CREATININE 1.16 mg/dL (0.70-1.30); Calcium 7.9 mg/dL (8.5-10.1); Chloride 103 mmol/L (98-107); Glucose 89 mg/dL (74-106); Potassium 3.8 mmol/L (3.5-5.1); Sodium 139 mmol/L (136-145)
[2019-03-25 07:39] LABS: PTT Activated 40.9 sec (21.0-31.4)
[2019-03-25] MEDS: Pantoprazole 40 MG VIAL IVP (07:43)
[2019-03-25 09:08] LABS: Magnesium 1.9 mg/dL (1.8-2.4)
--- NOTE | 2019-03-25 10:13 | W.NUTCONSULT ---
Date of service: 03/25/19 Time of Service: 10:13 Nutritional Consult ASSESSMENT: 54 year old male admitted with chest pain, work up negative at this point for hear attack. PMH: DM2, HTN, high cholesterol, overweight. Following diabetic diet with excellent intake, blood sugars well controlled. Not considered at nutritional risk at this time. Time Spent in Nutritional Counseling and Treatment: 0 time spent face to face
--- NOTE | 2019-03-25 11:17 | PDOC.CMIN ---
- If Service Date Differs Date of service: 03/25/19 Time of Service: 11:17 Care Management Initial Assess REASON FOR HOSPITALIZATION:: ACS PAST MEDICAL HISTORY/PAST SURGICAL HISTORY:: ACS, hypercholsterolemia, HTN, DM, chronic back pain related to a injury. PREVIOUS FUNCTIONAL STATUS/SOCIAL/FAMILY SUPPORTS:: Espinoza is independent at basesline he is staying with his Mother locally and lives in [place]. He states he has a provider in [place] and does not want one locally. Espinoza is not working at this time he is receiving unemployment. CURRENT FUNCTIONAL STATUS:: Espnioza is not engaged with CM he state he has not had much sleep, his back bothering him, he states he wants to go home and wants his IV's out. CM offerered to assist with Medicaid his current souce of income is unemployment. He declined assistance with insurance at this time. ADVANCE DIRECTIVES:: None on file does not want to complete at this time Has patient been provided with information about the portal?: Yes Did the patient sign up for the portal?: No CODE STATUS:: Full Code INSURANCE COVERAGE / FINANCIAL ISSUES:: No insurance CM will provide financial application CURRENT HOME/COMMUNITY SERVICES/EQUIPMENT:: None PRIMARY CARE PHYSICIAN:: Jenna primary care POTENTIAL DISCHARGE NEEDS:: Follow up with primary care as directed PATIENT/FAMILY EDUCATION NEEDS:: Discharge education, limitations and follow up plan of care including ask me three and self management ANTICIPATED BARRIERS TO DISCHARGE:: None TRANSPORTATION:: Via private car with family PLAN:: Espinoza will be discharged when medically ready per provider. He will have an MPI stress test today. Anticipate he will be discharged home today pending MPI results.
--- NOTE | 2019-03-25 11:28 | DI.NM_ITS ---
APPROVED REPORT Exam: Pharmacologic Patient Location: In-Patient Room/Bed: 222 Stress Nurse: Abena Avalos RN BMI: 34.00 Baseline Rhythm: Sinus Rhythm with slight St Segment elevation particularly in Lead V2. Indications: Patient reports he has had SOB and ???Gas??? bubble (???gasping for air???) pain feeling in his epigastric area/substernal area for the past few days which became worse last night and was a dmitted to the ICU. Last night he states he also had some associated nausea, dyspnea, and nausea when he came to the ER. Medical History Medical History: Previous back surgery Cardiac Medications: No Cardiac Medications., Allergies: Tylenol Cardiac Risk Factors: FHX of CAD, HTN, Hyperlipidemia, Diabetes (non-insulin), Smoking Previous Cardiac Procedures: None Pretest Chest Pain Characteristics: No chest pain Exercise History: Physically active Physical Disabilities: Back Lung Sounds: Clear to auscultation Heart Sounds: Regular, Murmur Stress Test Details Test: Pharmacologic stress testing performed using 0.4 mg of regadenoson per 5 mL given IV over 10 s econds. Reason for pharmacologic stress test: physical limitation. Nuclear Acquisition: Rest Tc-99m/Stress Tc-99m 1 day Rest Isotope: Tc-99m Sestamibi. Dose: 11.0 Date: 03/25/2019 Injection Time: 1035 Stress Isotope: Tc-99m Sestamibi. Dose: 33.3 Date: 03/25/2019 Injection Time: 1315 HR Max Heart Rate (APMHR): 166 bpm Resting HR Supine: 72 bpm Target HR (85% APMHR): 141 bpm Max HR Achieved: 91 bpm % of APMHR: 54 HR response to stress: Normal HR response to stress BP Resting BP Supine: 150/100 mmHg Max BP: 150/100 mmHg ECG Resting ECG: Sinus Rhythm ST Change: Normal Ectopy: none Stress ECG: Sinus Rhythm ST Change: Normal Arrhythmia: none Recovery ECG: Sinus Rhythm Recovery Arrhythmia: None Clinical Stress Symptoms: None reported Stress ECG Conclusion 1. There was no evidence of ischemia on the ECG portion of this exam. Protocol Used: Regadenoson Stress Test Summary STAGE HR BP Symptoms NOTES Supine 72 150/100 Standing 1 min 83 150/80 2 min 3 min 91 150/98 4 min 5 min 6 min 84 142/100 7 min 8 min 9 min 10 min 1 min recovery 3 min recovery 6 min recovery MPI Conclusion Ejection fraction was 50%. There was no evidence of wall motion abnormalities. There is no evidence of ischemia on the imaging portion of this exam. This represents a normal SPECT stress test.
[2019-03-25] MEDS: Regadenoson 0.4 MG/5 ML SYR IVP (13:34)
--- NOTE | 2019-03-25 15:55 | PDOC.CMDIS ---
- If Service Date Differs Date of service: 03/25/19 Time of Service: 15:58 LACE Index Scoring Tool - Questions: Length of Stay (in days): 2 Acuity (Admit via E.D.?): Yes Comorbidities: Diabetes w/o Complication E.D. Visits: 4 - Answers: Total Score: 10 Risk of Readmission: High Risk Care Management Discharge Reason for Hospitalization: ACS Discharge Plan: Espinoza left the hospital AMA after his MPI. CM will forward his summary and report to his primary care . CM contacted 's office over the phone and requested they follow up with alok. Fax number for ce[facility] is [phone] Patient/Family Education Needs: Patient left AMA before CM could revisit him.
--- NOTE | 2019-03-25 16:04 | W.PM.DS.N ---
Date of service: 03/25/19 Time of Service: 16:05 DS: Diagnosis Discharge Diagnosis (1) ACS (acute coronary syndrome): Status: Acute Asessment and Plan: Ruled out for acute coronary syndrome by serial troponins. EKG changes seem to slowly resolve. MPI testing was completed but results are pending and patient left prior to being able to communicate the results. The suspicion is this was gastrointestinal in origin. It seemed to improve with PPI therapy. The plan would be to have him continue on PPI therapy which can be done through his outpatient PCP. Discharge Plan Disposition Patient Disposition: AGAINST MEDICAL ADVICE Condition: Stable Discharge Details Chief Complaint: Chest Pain Clinical Impression: ACS (acute coronary syndrome) Reason For Visit: ACS Admit Date/Time: 03/24/19 07:55 Admit Provider: Espinoza Nicole Attending Provider: Espinoza Nicole Primary Care Provider: Tito Reddy [facility]: 54-year-old male that complained of severe substernal chest pain beginning 2 AM the morning of admission. He initially thought it was a gas pain but it did not go away. It continued to get worse and accompanied by diaphoresis. He has had some nausea and lightheadedness and increasing shortness of breath. Patient has chronic back pain which is unchanged from its baseline. He was transported to the emergency room via EMS. He received sublingual nitroglycerin without much relief. He was started on a nitro glycerin infusion and heparin infusion. He received Plavix 300 mg p.o. x1 and aspirin 324 mg p.o. x1. His EKG showed what appeared to be ST elevations in V1 through V3. Dr. Jhaveri contacted [facility] cardiology regarding transfer. The cardiology team at [facility] did not feel this was an ST elevation MT. They recommended continuing current measures and trending his troponins. He was transferred to the ICU for further monitoring. Serial troponins came back less than 0.05?4. He received a dose of pantoprazole with near complete resolution of his symptoms. The transfer was canceled and arrangements were made for an inpatient MPI test. Upon completion of the MPI test he got up off the stretcher and left AGAINST MEDICAL ADVICE. Home Meds and New Rx's Prescriptions: No Action No Known Home Meds RF: 0 Discharge Instructions Activity:: Activity as Tolerated Equipment/Supplies:: No Equipment Needed Diet:: Carb Counting Discharge Orders Discharge Orders: Discharge Order (Routine); Ordered 03/25/19 Ordered By: Espinoza Nicole Discharge Data Discharge Date/Time-TO BE ENTERED AT DEPARTURE: 03/25/19 13:55 DS: Summary Status at Discharge Functional status at discharge: independent ambulation Overall status at discharge: patient is back to baseline Mental Status: mental status grossly normal Speech and Movement: speech and movement normal Mood: angry Affect: labile affect Time Spent with Patient providing and/or coordinating discharge services: Less than 30 minutes Exam Narrative Exam Narrative: Patient demonstrated normal vital signs. He was sitting up on the side of the bed in no apparent distress. I did not get to do a formal exam on the patient after the MPI as he left AMA. Psych Mental Status: mental status grossly normal Speech and Movement: speech and movement normal Mood: angry Affect: labile affect DS: Data Vitals/I&O Vitals and I&O: Vital Signs Temperature 36.3 C L 03/25/19 07:30 Temperature Source Temporal Artery Scan 03/25/19 07:30 Pulse 64 03/25/19 09:00 Pulse 68 03/25/19 11:00 Respiratory Rate 13 03/25/19 11:00 Respiratory Effort Non-Labored 03/25/19 07:30 Respiratory Depth Normal 03/25/19 07:30 Respiratory Pattern Normal 03/25/19 07:30 Blood Pressure 110/63 03/25/19 09:00 Blood Pressure Mean 74 03/25/19 09:00 Blood Pressure Position Supine 03/25/19 03:25 Pulse Oximetry 94 L 03/25/19 11:00 Oxygen Delivery Method Nasal Cannula 03/25/19 08:01 Oxygen Flow Rate 1 03/25/19 08:01 Pain Level 5 03/25/19 07:44 Comment 03/24/19 14:32 Intake & Output 03/24/19 03/25/19 03/25/19 23:59 11:59 23:59 Intake Total 2422.7497 / 2534.8247 1291.966 / 1291.966 Output Total 1625 / 1625 975 / 975 Balance 797.7497 / 909.8247 316.966 / 316.966 Weight 87.4 kg Intake: IV 2122.7497 / 2164.8247 1281.966 / 1281.966 Oral 300 / 370 Output: Urine 1625 / 1625 975 / 975 Other: Urine Color Yellow Yellow Urine Appearance Clear Clear Urine Odor None Normal Comment voids to urinal Pt voided approximately 2L overnight Voiding Methods Urinal Urinal Data Completed and Pending Labs on day of discharge: Labs from last 24 hours 03/25/19 03/25/19 03/25/19 06:35 06:35 06:35 WBC 11.40 H RBC 4.01 L Hgb 13.0 L Hct 38.2 L MCV 95.3 H MCH 32.4 MCHC 34.0 RDW 12.1 Plt Count 191 MPV 11.2 H APTT 40.9 H Sodium 139 Potassium 3.8 Chloride 103 Carbon Dioxide 27.6 Anion Gap 8.4 BUN 11 D Creatinine 1.16 Estimated GFR/1.73 m2 >= 60.00 Glucose 89 Calcium 7.9 L Magnesium 1.9 Troponin I 03/24/19 22:12 WBC RBC Hgb Hct MCV MCH MCHC RDW Plt Count MPV APTT Sodium Potassium Chloride Carbon Dioxide Anion Gap BUN Creatinine Estimated GFR/1.73 m2 Glucose Calcium Magnesium Troponin I < 0.05 [facility] Medical History Diabetes mellitus (Chronic) HTN (hypertension) (Chronic) Hypercholesterolemia (Chronic) Surgical History Previous back surgery (Acute) Status post open reduction with internal fixation of fracture (Acute) Right ankle ORIF Social History Smoking/Tobacco Use Status: Current every day Alcohol Intake: never Drug use: Occasionally Substance use type: marijuana Do you feel safe at home: Yes Do you feel safe in your relationship?: Yes
== END 2019-03-25 13:55 | disposition left against medical advice (07) ==
LOC: ER 08:49 → ICU 09:13
PROVIDERS: General Practice; Admitting Provider Family Medicine; Emergency Provider Emergency Medicine; PCP Internal Medicine; Visit Provider Family Medicine
DX: R07.89 Other chest pain (principal); Z53.29 Procedure and treatment not carried out because of patient's decision for other reasons; I10 Essential (primary) hypertension; E11.9 Type 2 diabetes mellitus without complications; E78.00 Pure hypercholesterolemia, unspecified; F17.210 Nicotine dependence, cigarettes, uncomplicated
CPT/HCPCS: 36415; 78452; 80048; 80053; 85027; 93005; 94640; 96361; 96365; 96366; 96368; 96375; 96376; 99220; 99238; 99291; 71045; 83735; 84484; 85025; 85610; 85730; 93010; 93017; 99217; J2060; J2270; J2405; J2785; J7614

== ENCOUNTER 2021-03-10 02:59 | Emergency (ER) | payer SELFPAY ==
[2021-03-10] VITALS (19 sets, daily range): BP systolic 125–155; BP diastolic 83–93; PULSE 90–102; RESP 10–21; TEMP 36.2; O2SAT 89–97
--- NOTE | 2021-03-10 03:10 | ED.GENADUL_ITS ---
Discharge Plan Disposition Patient Disposition: HOME Condition: Good Discharge Details Clinical Impression: Accidental opiate poisoning Primary Care Provider: Tito Reddy ED Provider: Durga Jhaveri Home Meds and New Rx's Prescriptions: No Action No Known Home Meds RF: 0 Discharge Instructions Additional Instructions: Would avoid drug use in the future as this can lead to significant problems, complications and . There are resources in the community if you feel you have a drug use problem that can help with recovery. Return to ED if problems/concerns. Medical Decision Making Patient here after being found unresponsive with EMS activation and subsequent response to Narcan arriving to ED alert and oriented. Admits to cocaine use but denies ever using heroin. Suspect that patient had unknowingly smoked heroin as opposed to cocaine or potentially a mixture of heroin and cocaine. In any event, he is awake and alert now with no complaints other than nausea. He denies headache, chest pain. He is neurologically intact. Blood sugar in the field was improving. He is mildly tachycardic and hypertensive. Will be observed in the ED for period of time prior to discharge. Patient remained awake, alert and appropriate without complaints/problems. Will be discharged and is calling brother to come get him. HPI General Mode of arrival: EMS . Date/Time Provider Initiated Documentation: 03/10/21 03:09 . Limitations to Documentation: no limitations . Information obtained by: patient, EMS and RN notes reviewed . HPI Narrative: Patient presents to ED by ambulance after EMS was called by an individual who witnessed the patient to be unresponsive. Patient did require assistance with ventilation. Blood sugar was almost 200 in the field. 4 mg intranasal Narcan was given and patient became awake and alert. He reports to me that he was using cocaine tonight. He recalls being with a woman and they both were using. He does not have recollection of what occurred after that. He admits to using cocaine but denies ever using heroin. He denies any alcohol use tonight. Currently has some nausea but otherwise denies headache, chest pain, shortness of breath, neurologic symptoms. Related Data Home Medications Medication Instructions Recorded Confirmed Unknown [No Known Home Meds] 03/24/19 03/10/21 Allergies Allergy/AdvReac Type Severity Reaction Status Date / Time acetaminophen Allergy Unverified 03/10/21 03:09 General Stated Complaint: OD/Poison THI: 2 Review of Systems Narrative: As documented in HPI otherwise negative as below. Const: no fever, chills, weakness Resp: no cough, SOB, pleuritic pain CV: no CP, diaphoresis, edema, syncope GI: no abdominal pain, vomiting, diarrhea Neuro: no headache, numbness, focal weakness, confusion PFSH All Active Problems (Updated 03/10/21 @ 04:39 by Durga Jhaveri MD) Accidental opiate poisoning (Acute) ACS (acute coronary syndrome) (Acute) Medical History Diabetes mellitus HTN (hypertension) Hypercholesterolemia Surgical History Previous back surgery Status post open reduction with internal fixation of fracture Right ankle ORIF Social History Smoking/Tobacco Use Status: Current every day Tobacco Type: cigarettes Smoking risk assessment performed?: Yes Alcohol Intake: never Drug use: Occasionally Substance use type: marijuana and crack/cocaine Do you feel safe at home: Yes Do you feel safe in your relationship?: Yes Exam Narrative Exam Narrative: Const: WDWN male in NAD. HEENT: NC/AT. Normal facial exam. Eyes: Pupils small but reactive. EOMI. Neck: Supple. Trachea midline. Lungs: Normal respiratory effort. Lungs are clear. Cor: RRR without murmur/gallop. Good radial pulses. GI: Soft. ND. Neuro: A+O x 3. Normal speech, mentation, gait. Cranial nerves II - XII grossly intact. No gross motor or sensory deficit. Ext: No C/C/E. Skin: Warm and dry without rash. Course Vital Signs Vital signs: Vital Signs Temperature 97.2 F L 03/10/21 02:57 Pulse 102 H 03/10/21 02:57 Respiratory Rate 19 03/10/21 02:57 Blood Pressure 155/93 H 03/10/21 02:57 Pulse Oximetry 97 03/10/21 02:57 Temperature 97.2 F L 03/10/21 02:57 Temperature Source Skin 03/10/21 02:57 Pulse 102 H 03/10/21 02:57 Respiratory Rate 19 03/10/21 02:57 Blood Pressure 155/93 H 03/10/21 02:57 Blood Pressure Position Sitting 03/10/21 02:57 Pulse Oximetry 97 03/10/21 02:57 Oxygen Delivery Method Room Air 03/10/21 02:57 Oxygen Flow Rate 0 03/10/21 02:57 Pain Level 0 03/10/21 02:57
== END 2021-03-10 05:12 | disposition home or self-care (01) ==
PROVIDERS: Emergency Provider Emergency Medicine; PCP Internal Medicine
DX: T40.601A Poisoning by unspecified narcotics, accidental (unintentional), initial encounter (principal); R00.0 Tachycardia, unspecified
CPT/HCPCS: 99283

== ENCOUNTER 2021-06-19 13:59 | Emergency (ER) | payer SELFPAY ==
[2021-06-19] VITALS (31 sets, daily range): BP systolic 148–206; BP diastolic 84–103; PULSE 54–79; RESP 8–27; TEMP 36.6; O2SAT 93–99
--- NOTE | 2021-06-19 14:00 | RT.EKG_ITS ---
APPROVED REPORT Exam: Resting ECG Reason for Exam: chest pain Patient Location: E HR:67 bpm ECG Measurements Heart Rate 67 AXIS DE 175 P 50 QRSd 95 QRS -13 QT 405 T 127 QTc 429 Conclusion Sinus rhythm...normal P axis, V-rate 60- 99 Anterior infarct, old...Q >40mS, abnormal ST-T, V2-V5 Abnormal T lateral leads...previously present Feb 2019
--- NOTE | 2021-06-19 14:30 | DI.RAD_ITS ---
Exam(s) XR PORTABLE CHEST AP EXAM: XR PORTABLE CHEST AP CLINICAL HISTORY: persistent cough TECHNIQUE: 2D digital imaging was performed of the chest. One image was obtained. An AP view was ob tained. COMPARISON: CR,XR XR PORTABLE CHEST AP from 03/24/2019 FINDINGS: MEDIASTINUM: Normal. HEART: Normal. PULMONARY VASCULATURE: Normal. LUNGS: Clear. PLEURAL SPACE: No pleural effusion or pneumothorax. BONE:Within normal limits for the patient's age. OTHER FINDINGS:Normal. IMPRESSION: No acute pulmonary findings. DATA REPOSITORY: RADIATION DOSE DELIVERED:
--- NOTE | 2021-06-19 14:38 | ED.GENADUL_ITS ---
Discharge Plan Disposition Patient Disposition: HOME Condition: Improving Discharge Details Clinical Impression: Acute bronchitis with bronchospasm Primary Care Provider: Tito Reddy ED Provider: Brendon Marsh Home Meds and New Rx's Prescriptions: New lisinopril 10 mg tablet 10 mg PO DAILY Qty: 30 0RF doxycycline hyclate 100 mg capsule 100 mg PO BID 10 Days Qty: 20 0RF prednisone 50 mg tablet 50 mg PO DAILY 5 Days Qty: 5 0RF Discharge Instructions Instructions: Acute Bronchitis (ED) Additional Instructions: Take prednisone and doxycycline as prescribed until finished. Next doses of these medications will be tomorrow. Restart your lisinopril tomorrow as well. Our care managers will arrange an outpatient follow-up for you to reestablish local primary care. Return to the emergency department for any acute concerns. Medical Decision Making This is a 56-year-old male who presents from home with his mother. He reports few weeks of generalized dry cough, malaise. Seems to have worsened since working outside in the rain. He reports general malaise and weakness. He states he has not been taking diabetes medication or antihypertensive and has fallen out of touch with his primary care physician in [facility]. He arrives to the ER somewhat hypertensive 190/99 with a pulse in the high 60s. He is afebrile and oxygenating 99% on room air. His exam reveals bilateral end expiratory wheezing. He was seen previously at urgent care where he had a negative COVID test and negative strep. Patient differential diagnosis is broad including uncontrolled diabetes, ischemic cardiac disease, dehydration, electrolyte abnormalities, bronchitis. He does have some wheezing present and has likely undiagnosed COPD. Patient placed on sterile preparation technician, screening labs and EKG obtained. His EKG reveals unchanged T wave inversions in the lateral leads versus comparison from 2020. Patient given Solu-Medrol and DuoNeb updraft. Diagnostic studies: CBC is reassuring, as are chemistries with note of glucose 112 and unremarkable chemistries and LFTs. Troponin is negative, BNP 489. Chest x-ray with no acute findings. I do feel the patient has a component of bronchitis with bronchospasm and will treat as such with a burst of prednisone and antibiotics. I will restart him on his lisinopril and arrange for him to establish local primary care. His hemoglobin A1c and today's nonfasting glucose were reassuring. He is stable and improved at this time. Lab Data Lab results reviewed: Yes I reviewed the patient's lab results. Labs: Laboratory Results - last 24 hr 06/19/21 06/19/21 06/19/21 14:38 14:39 14:39 WBC 9.64 RBC 4.66 Hgb 15.2 Hct 45.0 MCV 96.6 H MCH 32.6 MCHC 33.8 RDW 12.1 Plt Count 245 MPV 11.3 H Immature Gran % 0.2 Neutrophils % 66.0 Lymphocytes % 22.3 Monocytes % 8.3 Eosinophils % 2.3 Basophils % 0.9 Nucleated RBC % 0.0 Absolute Neutrophils 6.36 Absolute Lymphocytes 2.15 Absolute Monocytes 0.80 Absolute Eosinophils 0.22 Absolute Basophils 0.09 Sodium 138 Potassium 4.1 Chloride 105 Carbon Dioxide 29.4 Anion Gap 3.6 BUN 14 Creatinine 1.3 Estimated GFR/1.73 m2 57.10 Glucose 112 H Calcium 8.1 L Magnesium 2.2 Total Bilirubin 0.4 AST 19 ALT 29 Alkaline Phosphatase 108 Troponin I < 50 NT-Pro-B Natriuret Pep 489 H Total Protein 7.6 Albumin 3.5 HPI General Mode of arrival: ambulatory . Date/Time Provider Initiated Documentation: 06/19/21 13:59 . Limitations to Documentation: no limitations . Information obtained by: patient and family . History of Present Illness 56 year old M presents to the emergency department with the chief complaint of Multiple complaints: Cough, sore throat, not taking medications, described as moderate, Quality is described as dull, and is localized to the mouth and neck. Patient reports no radiation. Patient started experiencing this day(s) and it has been constant. improves with No relieving factors improve symptom(s), Eating worsens symptoms . Patient notes cough, malaise and shortness of breath; denies chest pain, diaphoresis, nausea/vomiting and syncope. Patient did receive the following treatments prior to arrival, none Related Data Home Medications Medication Instructions Recorded Confirmed doxycycline hyclate 100 mg capsule 100 mg PO BID 10 Days #20 cap 06/19/21 lisinopril 10 mg tablet 10 mg PO DAILY #30 tab 06/19/21 prednisone 50 mg tablet 50 mg PO DAILY 5 Days #5 tab 06/19/21 Previous Rx's Medication Instructions Recorded doxycycline hyclate 100 mg capsule 100 mg PO BID 10 Days #20 cap 06/19/21 lisinopril 10 mg tablet 10 mg PO DAILY #30 tab 06/19/21 prednisone 50 mg tablet 50 mg PO DAILY 5 Days #5 tab 06/19/21 Allergies Allergy/AdvReac Type Severity Reaction Status Date / Time acetaminophen Allergy Unverified 03/10/21 03:09 General Stated Complaint: GenMedical THI: 2 Review of Systems Narrative: Denies vomiting or change to bowel or bladder habits. Not taking medications. States he has run out of his insurance. No current PMD that he sees regularly. Negative COVID test today. Reports negative strep test. PFS All Active Problems (Updated 06/19/21 @ 16:37 by Brendon Marsh MD) Acute bronchitis with bronchospasm (Acute) ACS (acute coronary syndrome) (Acute) Medical History Diabetes mellitus HTN (hypertension) Hypercholesterolemia Surgical History Previous back surgery Status post open reduction with internal fixation of fracture Right ankle ORIF Social History Smoking/Tobacco Use Status: Current every day Tobacco Type: cigarettes Smoking risk assessment performed?: Yes Alcohol Intake: never Drug use: Occasionally Substance use type: marijuana Do you feel safe at home: Yes Do you feel safe in your relationship?: Yes Exam Narrative Exam Narrative: GEN: awake, alert, oriented 3. Pleasant, well groomed, interactive. HEAD: Normocephalic, atraumatic ENT: Mucous membranes moist, oropharynx without erythema or exudate External ear exam unremarkable EYES: PERRL, EOMI NECK: Full ROM, no SELINA, no menigismus CHEST/RESP: Cough noted, bilateral end expiratory wheeze present. CARDIOVASCULAR: RRR, no murmur, rub natasha. 2+ Rad pulse bilateral ABDOMEN: Soft, nontender, no mass. +Bowel sounds EXT: Full ROM, no edema, no rash Neuro: Grossly normal neurologic exam, conversant, interactive. Psych: Speech fluent, thoughts congruent, affect normal Course Vital Signs Vital signs: Vital Signs Respiratory Rate 11 L 06/19/21 14:05 Pulse Oximetry 99 06/19/21 14:05 Temperature 36.6 C 06/19/21 14:19 Temperature Source Tympanic 06/19/21 14:19 Pulse 66 06/19/21 14:19 Pulse 66 06/19/21 14:20 Respiratory Rate 19 06/19/21 14:20 Respiratory Effort Non-Labored 06/19/21 14:25 Respiratory Depth Normal 06/19/21 14:25 Respiratory Pattern Normal 06/19/21 14:25 Blood Pressure 190/99 H 06/19/21 14:19 Blood Pressure Mean 126 06/19/21 14:16 Pulse Oximetry 96 06/19/21 14:20 Oxygen Delivery Method Room Air 06/19/21 14:19 Oxygen Flow Rate 0 06/19/21 14:19 Pain Level 0 06/19/21 14:19
[2021-06-19] MEDS: Normal Saline 1,000 ML 150 ML IV (14:48)
[2021-06-19] MEDS: Albuterol/Ipratropium 3 ML UPD VIAL UPD (14:49)
[2021-06-19] MEDS: methylPREDNISolone SUCC 125 MG VIAL IVP (14:49)
[2021-06-19 14:54] LABS: Abs Immature Grans 0.02 10^3/uL (0.0-0.06); Absolute Basophil Count 0.09 10^3/uL (0.0-0.2); Absolute Eosinophil Count 0.22 10^3/uL (0.0-0.7); Absolute Lymphocyte Count 2.15 10^3/uL (1.2-3.4); Absolute Neutrophil Count 6.36 10^3/uL (1.2-6.7); Basophils % 0.9; Eosinophils % 2.3; HGB 15.2 g/dL (13.5-17.5); Immature Grans % 0.2; Lymphocytes % 22.3; MCH 32.6 pg (27.0-33.0); MCHC 33.8 % (32.0-36.0); MCV 96.6 fL (80-95); MPV 11.3 fL (8.0-11.0); Monocytes % 8.3; Platelet Count 245 10^3/uL (130-400); RBC 4.66 10^6/uL (4.36-5.78); RDW 12.1 % (11.8-14.1); RDW-SD 43.7 fL; WBC 9.64 10^3/uL (4.4-10.8)
[2021-06-19 15:13] LABS: ALT 29 U/L (16-63); AST 19 U/L (15-37); Albumin 3.5 g/dL (3.4-5.0); Alkaline Phosphatase 108 U/L (46-116); Anion Gap 3.6 mmol/L (3-11); BUN 14 mg/dL (7-18); Bilirubin, Total 0.4 mg/dL (0.2-1.0); CO2 29.4 mmol/L (21.0-32.0); CREATININE 1.3 mg/dL (0.70-1.30); Calcium 8.1 mg/dL (8.5-10.1); Chloride 105 mmol/L (98-107); Glucose 112 mg/dL (74-106); Magnesium 2.2 mg/dL (1.8-2.4); Potassium 4.1 mmol/L (3.5-5.1); Sodium 138 mmol/L (136-145); Total Protein 7.6 g/dL (6.4-8.2); Troponin I < 50 ng/L (<or=60)
[2021-06-19 15:19] LABS: NT-proBNP 489 pg/mL (<300)
--- NOTE | 2021-06-19 15:21 | NUR.NOTE ---
Nursing Note: Referral given to Care Management needs PCP, hx diabetes, hypertension, establish care, in 7 to 10 days. Pt lives in [place] and would like to go to [facility]. For ease of access to PCP, lives with mother and she is a pt there. Jocelin Berumen
[2021-06-19 15:39] LABS: Hemoglobin A1C 5.7 % (<5.7)
[2021-06-19] MEDS: Doxycycline Hyclate 100 MG CAP PO (16:43)
== END 2021-06-19 16:49 | disposition home or self-care (01) ==
PROVIDERS: Emergency Provider Emergency Medicine; PCP Internal Medicine
DX: J20.9 Acute bronchitis, unspecified (principal); R05.9 Cough, unspecified; R07.9 Chest pain, unspecified; R06.02 Shortness of breath; E11.9 Type 2 diabetes mellitus without complications; Z91.14 Patient's other noncompliance with medication regimen
CPT/HCPCS: 80053; 93005; 96361; 96374; 99284; 71045; 83036; 83735; 83880; 84484; 85025; 93010; 99283; J2930; J7620

== ENCOUNTER 2021-12-19 21:35 | Outpatient (REF) | payer SELFPAY ==
[2021-12-21 14:34] LABS: Varicella Zoster DNA Result Negative ((See Note))
== END 2021-12-19 21:36 | disposition home or self-care (01) ==
LOC: LBN 21:35
PROVIDERS: PCP Internal Medicine; Visit Provider Physician Assistant Medical
DX: R21 Rash and other nonspecific skin eruption (principal)
CPT/HCPCS: 87077; 87798; 87070; 87186; 87205

== ENCOUNTER 2022-01-05 15:32 | Emergency (ER) | payer SELFPAY ==
[2022-01-05] VITALS (73 sets, daily range): BP systolic 50–215; BP diastolic 10–93; PULSE 40–195; RESP 1–22; TEMP 36.8; O2SAT 90–100
--- NOTE | 2022-01-05 15:15 | RT.EKG_ITS ---
APPROVED REPORT Exam: Resting ECG Reason for Exam: cardiac arrest Patient Location: E HR:62 bpm ECG Measurements Heart Rate 62 AXIS AZ 181 P 70 QRSd 188 QRS -67 QT 543 T -29 QTc 552 Conclusion Sinus rhythm...normal P axis, V-rate 60- 99 RBBB and LAFB...QRSd >120mS, axis(-40,240)
--- NOTE | 2022-01-05 15:28 | DI.RAD_ITS ---
Exam(s) XR PORTABLE CHEST AP EXAM: XR PORTABLE CHEST AP CLINICAL HISTORY: tube placement. TECHNIQUE: 2D digital imaging was performed. COMPARISON: CR XR PORTABLE CHEST AP from 06/19/2021 FINDINGS: Single AP portable view. Distal tip of the endotracheal tube is in the right mainstem bronchus and should be retracted to abov e the milton.. Chest leads and pads in place. Heart size is upper normal. The mediastinum is not widened. Lungs are clear. No infiltrates nor obvious pleural effusions. No fractures. No pneumothorax. IMPRESSION: No acute pulmonary findings, however, the endotracheal tube needs to be retracted to a level above th e milton. It is presently in the proximal aspect of the right mainstem bronchus. Report called by myself to the emergency room physician by myself 01/05/2022 16:45 p.m. DATA REPOSITORY: RADIATION DOSE DELIVERED:
--- NOTE | 2022-01-05 15:40 | ED.GENADUL_ITS ---
Discharge Plan Disposition Patient Disposition: [facility] Condition: Critical Discharge Details Clinical Impression: Cardiac arrest, Hyperkalemia Primary Care Provider: Tito Reddy ED Provider: Espinoza Ortiz Home Meds and New Rx's Prescriptions: No Action lisinopril 10 mg tablet 10 mg PO DAILY Qty: 30 0RF Discharge Data Discharge Date/Time-TO BE ENTERED AT DEPARTURE: 01/05/22 20:16 Medical Decision Making 56 yo male hx of htn, hld, dm, who comes in with ems after he was found in cardiac arrest. He was last seen yesterday and was with his friends last night and son is concerned he was drinking alcohol and possibly could have taken other drugs, he is not certain of this though. The son tried calling him around 11am and had no answer then was found this afternoon unresponsive, ems was called and found him in [place]. They performed cpr for about 16 minutes and gave 3 doses of epi and achieved rosc and was transported here and was intubated with a 7.5 ET tube as well in the field. He arrives with stable vitals and intubated. HE is intermittently moving his arms and legs, no signs of trauma to the head or elsewhere, pupils are pinpoint on exam, equal in size. Lungs are equal and no significant wheezing on either side, no murmurs, soft nontender abdomen, no significant swelling of the lower extremities, soft nondistended abdomen. Suspect that he could have had respiratory arrest from toxicological causes then subsequently cardiac arrest,will obtain toxicological workup as well as ekg, troponin, cbc, cmp, chest xray and head/cspine ct to evaluate for potential electrolyte abnormalities, signs of end organ damage and possibly traumatic injury to the head and c spine pt's xray shows et tube at the start of right mainstem, tube pulled back 2.5cm. patient with multiple lab abnormalities including lactate 17, ph less then 7, troponin 1000 likely secondary to the cardiac arrest given he was in [place] and also has elevated creatinine and lft's indicative of multiorgan dysfunction likely from lack of perfusion during the arrest, k of 8.1. wbc of 23 likely secondary to the cardiac arrest but antibiotics ordered as well to cover for sepsis. insulin, bicarb, calcium ordered. Will call [facility] for transfer pt hypotensive in the 60's on repeat blood pressure readings, norepi ordered. awaiting [facility] pt bp now 100/60, spoke with [facility] and reviewed all labs and presentation, they felt likely this is not cardiac in origin and I agree given initial pea and do not feel strongly for heparin.They did accept to their icu, Dr. Ward is the accepting provider. I placed a right fem central line under sterile technique without complications given he is requiring pressors despite levophed patient persistently hypotensive in the 60's systolic, repeat k worsening at 9 so more insulin and albuterol ordered. Hydrocotisone ordered for persistent hypotension and will add epi drip as well. Family updated on patient status and on plan for transfer, all of the families questions were answered, and I did advise his prognosis is grim given his significant lab abnormalities on presentation and they understood this and wish pt to continue to be full code at this time. Differential Diagnosis Differential Diagnosis: overdose, acs, electrolyte abnormality Medical Records Medical records reviewed: Yes I reviewed the patient's medical records. Imaging Data Radiologic Study: Attestation: I personally reviewed and interpreted this imaging study as follows: Imaging: X-Ray My impression: et tube in right mainstem Radiologic Study #2: Attestation: I personally reviewed and interpreted this imaging study as follows: Imaging: CT Scan Radiologist's impression: IMPRESSION: No acute intracranial findings on this noninfused CT scan of the brain. No evidence of cervical spine fracture, malalignment, nor acute compromise of the cervical spinal canal. Lab Data Lab results reviewed: Yes I reviewed the patient's lab results. ECG Data Attestation: I personally reviewed and interpreted this ECG (s) as follows: Prior ECG tracings: available for review Interpretation: sinus rhythm, rate of 62, rbbb and lafb no stemi HPI General Mode of arrival: EMS . Date/Time Provider Initiated Documentation: 01/05/22 15:39 . Information obtained by: EMS . History of Present Illness 56 year old M presents to the emergency department with the chief complaint of cardiac arrest, described as moderate, Patient started experiencing this unknown and it has been other (s/p 16 minutes cpr and 3 epi obtained rosc). Patient did receive the following treatments prior to arrival, other (ems during arrest gave 3 epi, was in pea) Related Data Home Medications Medication Instructions Recorded Confirmed lisinopril 10 mg tablet 10 mg PO DAILY #30 tabs 06/19/21 Previous Rx's Medication Instructions Recorded lisinopril 10 mg tablet 10 mg PO DAILY #30 tabs 06/19/21 Allergies Allergy/AdvReac Type Severity Reaction Status Date / Time acetaminophen Allergy Unverified 03/10/21 03:09 General THI: 2 Review of Systems Unobtainable due to endotracheal tube PFSH All Active Problems (Updated 01/06/22 @ 08:47 by Espinoza Ortiz MD) Cardiac arrest (Acute) Hyperkalemia (Acute) ACS (acute coronary syndrome) (Acute) Medical History Diabetes mellitus HTN (hypertension) Hypercholesterolemia Surgical History Previous back surgery Status post open reduction with internal fixation of fracture Right ankle ORIF Social History Smoking/Tobacco Use Status: Current every day Tobacco Type: cigarettes Smoking risk assessment performed?: Yes Alcohol Intake: never Drug use: Occasionally Substance use type: marijuana Do you feel safe at home: Yes Do you feel safe in your relationship?: Yes Exam Const General: other (intubated) [facility] Head: normal to inspection Ears: external ears normal General nose exam: external nose normal Mouth: moist mucous membranes Eyes Periorbital: periorbital findings normal Pupils: other (constricted bilaterally) Neck Neck: normal visual inspection Chest Chest: normal palpation of entire chest wall Resp Effort & Inspection: other (equal breath sounds) Cardio Rate: regular rate Skin General skin exam: no rashes or lesions noted Extrem General: normal to inspection Procedures Central Line Placement Right Femoral: Time Out Performed: Yes Patient Placed on Monitor/Pulse Ox: Yes Prep: mask, gown and gloves Central Line Prep: Chlorhexidine scrub and sterile drapes applied Ultrasound Used for Placement: Yes Central Line Lumen Inserted: triple Post Procedure: good blood return, all ports aspirated, flushed, capped and sutured in place with 3-0 nylon Patient Tolerated Procedure: well Complications: none Critical Care Time Critical Care Time Critical Care Time: Yes Total Critical Care Time: 120 (minutes) Attestation: time spent on frequent reassessments, hemodynamic monitoring and lab review in p atient with history of cardiac arrest and hypotension requiring pressors and potential to deteriorate at any time
[2022-01-05] MEDS: Propofol 200 MG/20 ML VIAL 80 MG IVP (15:41)
[2022-01-05] MEDS: PROPOFOL 1,000 MG/100 ML BTL 3.3 MG (15:42)
--- NOTE | 2022-01-05 15:45 | DI.CT_ITS ---
Exam(s) CT HEAD CERVICAL SPINE WO EXAM: CT HEAD CERVICAL SPINE WO CLINICAL HISTORY: cardiac arrest, ?hemorrhage vs c spine injury. TECHNIQUE: Imaging Protocol: Axial computed tomography images with coronal and sagittal reformatted images were created and reviewed COMPARISON: No exams were available for comparison FINDINGS: BRAIN: There are no skull fractures nor fluid in the visualized paranasal sinuses. There is no evidence of intracranial hemorrhage, mass effect, or shift of midline structures. There are no extra-axial fluid collections. The ventricles are not enlarged or shifted and there is no blo od within the ventricular system nor within the basal cisterns. CERVICAL SPINE: There is no evidence of fracture nor listhesis. No significant prevertebral soft tissue swelling. There is chronic disc space narrowing at C5-6 and C6-7 levels. Also Luschka joint osteophytes bilate rally at C5-6. Other disc spaces exhibit normal height. There is no significant facet joint malalignment. No significant osseous lesions evident. Patient is intubated. IMPRESSION: No acute intracranial findings on this noninfused CT scan of the brain. No evidence of cervical spine fracture, malalignment, nor acute compromise of the cervical spinal can al. RADIATION DOSE DELIVERED: 1,552.31mGy.cm Total DLP DATA REPOSITORY: All CT scans at this facility are submitted to the National Radiology Data Registry (NRDR) Dose Index Registry (DIR) with the [employer] (A[employer]). RADIATION OPTIMIZATION: All CT scans at this facility use at least one of these dose optimization te chniques: automated exposure control; mA and/or kV adjustment per patient size (includes targeted exa ms where dose is matched to clinical indication); or iterative reconstruction.
[2022-01-05] MEDS: Ketamine 500 MG/10 ML VIAL IM (15:57)
[2022-01-05 16:00] LABS: HCO3 (Venous) 9 mmol/L (23-28); O2 Sat (Venous) 93 %; TCO2 (Venous) 10 mmol/L (24-29); pO2 (Venous) 93 mmHg
[2022-01-05 16:02] LABS: pCO2 (Venous) 61 mmHg (41-51)
[2022-01-05 16:06] LABS: Abs Immature Grans 1.05 10^3/uL (0.0-0.06); HCT 46.5 % (40.0-50.0); HGB 13.9 g/dL (13.5-17.5); MCH 32.3 pg (27.0-33.0); MCHC 29.9 % (32.0-36.0); MCV 108 fL (80-95); MPV 10.6 fL (8.0-11.0); Platelet Count 223 10^3/uL (130-400); RBC 4.31 10^6/uL (4.36-5.78); RDW 12.1 % (11.8-14.1); RDW-SD 48.7 fL; WBC 23.94 10^3/uL (4.4-10.8)
[2022-01-05] MEDS: Normal Saline 1,000 ML 1000 ML IV (16:09)
[2022-01-05 16:12] LABS: Bilirubin Negative (Negative); Blood Moderate (Negative); Clarity Sl Cloudy (Clear); Glucose 250 mg/dL (Negative); Ketones Negative (Negative); Leukocyte Esterase Negative (Negative); Nitrite Negative (Negative); Specific Gravity >= 1.030 (1.005-1.025); Urobilinogen 0.2 EU/dL (Up TO 0.2); pH 5.5 (5-8)
--- NOTE | 2022-01-05 16:16 | NUR.NOTE ---
Nursing Note: Dale, son,
[2022-01-05 16:22] LABS: Absolute Lymphocyte Count 2.87 10^3/uL (1.2-3.4); Absolute Monocyte Count 1.44 10^3/uL (0.1-0.8); Absolute Neutrophil Count 19.15 10^3/uL (1.2-6.7); Bands % 2; Diff Comment Manual Differential; Macrocytosis 1+; Metamyelocytes % 2
[2022-01-05 16:23] LABS: Bacteria Moderate HPF (Negative); C & S Indicated? Yes; Casts 3-5 Hyaline LPF (Negative); Crystals Negative HPF (Negative); Epithelial Cells Rare HPF (Negative); Mucus Trace (Negative)
[2022-01-05 16:23] LABS: Polychromasia Present
[2022-01-05 16:25] LABS: *AMPHETAMINES SCREEN URINE Negative (Negative); *BARBITURATES SCREEN URINE Negative (Negative); *BENZODIAZEPINES SCREEN URINE Negative (Negative); Cannabinoids THC Positive (Negative); Cocaine Screen,Urine Positive (Negative); METHADONE URINE SCREEN Negative (Negative); OPIATES URINE SCREEN Negative (Negative)
[2022-01-05 16:26] LABS: Tricyclic Antidepressants Negative (Negative)
[2022-01-05 16:27] LABS: TSH (W/Ref FT4) 17.67 uIU/mL (0.36-3.74)
[2022-01-05 16:31] LABS: Alkaline Phosphatase 108 U/L (46-116); Anion Gap 26.5 mmol/L (3-11); BUN 40 mg/dL (7-18); Bilirubin, Total 0.6 mg/dL (0.2-1.0); CO2 13.5 mmol/L (21.0-32.0); Calcium 6.8 mg/dL (8.5-10.1); Chloride 93 mmol/L (98-107); Estimated GFR 10.29 (mL/min/1.73m2); Glucose 363 mg/dL (74-106); Magnesium 2.9 mg/dL (1.8-2.4); Sodium 133 mmol/L (136-145); Total Protein 7.2 g/dL (6.4-8.2)
[2022-01-05 16:32] LABS: ETHANOL BLOOD < 3.0 mg/dL (<10)
[2022-01-05 16:34] LABS: Potassium 8.1 mmol/L (3.5-5.1)
[2022-01-05 16:35] LABS: Troponin I 1138 ng/L (<or=60)
--- NOTE | 2022-01-05 16:44 | DI.VRAD_ITS ---
PROCEDURE INFORMATION: Exam: CT Head Without Contrast Exam date and time: 01/05/2022 4:28 PM Age: 56 years old Clinical indication: Alteration of consciousness and other: Cardiac arrest, ? hemorrhage vs c spine injury TECHNIQUE: Imaging protocol: Computed tomography of the head without contrast. COMPARISON: No relevant prior studies available. FINDINGS: Brain: No intracranial hemorrhage or extra-axial fluid collection. No evidence of mass effect or midline shift. Cody-white matter differentiation is intact. Cerebral ventricles: No ventriculomegaly. Paranasal sinuses: Unremarkable. No fluid levels. Mastoid air cells: Unremarkable. Bones/joints: No acute osseus lesion or fracture. Soft tissues: Unremarkable. IMPRESSION: No acute intracranial pathology. PROCEDURE INFORMATION: Exam: CT Cervical Spine Without Contrast Exam date and time: 01/05/2022 4:28 PM Age: 56 years old Clinical indication: Alteration of consciousness and other: Cardiac arrest, ? hemorrhage vs c spine injury TECHNIQUE: Imaging protocol: Computed tomography of the cervical spine without contrast. COMPARISON: CR XR PORTABLE CHEST AP 01/05/2022 4:18 PM FINDINGS: Bones/joints: Vertebral body heights are maintained. No locked or perched facets. Multilevel facet arthropathy. No acute cervical spine fracture. The dens is intact. Atlanto-axial intervals are normal. Multilevel degenerative changes with intervertebral disc height loss and osteophyte formation, with multilevel areas of mild canal stenosis. Lungs: Lung apices are clear. Soft tissues: Unremarkable. IMPRESSION: No acute cervical spine fracture. Dictated and Authenticated by: Isreal Urban MD. Ordering:AL Doran MD
[2022-01-05] MEDS: Insulin REGULAR-Human 100 UNITS/ML UNIT 10 UNITS IV (16:46)
[2022-01-05] MEDS: Sodium Bicarbonate 50 MEQ/50 ML SYR IVP ×2 (16:46→18:49)
[2022-01-05] MEDS: Calcium Gluconate 4.65 MEQ/10 ML VIAL 4.65 MG IVP (16:46)
[2022-01-05] MEDS: Albuterol 2.5 MG/3 ML INH SOLN VIAL UPD (16:47)
[2022-01-05 16:50] LABS: ALT 5141 U/L (16-63); AST 5009 U/L (15-37); Acetaminophen < 2 ug/mL (10-30)
[2022-01-05] MEDS: PIPERACILLIN/TAZO 4.5 GM in Normal Saline 100 ML IVPB (16:58)
[2022-01-05] MEDS: Lactated Ringers 1,000 ML 200 ML IV (17:01)
--- NOTE | 2022-01-05 17:11 | DI.VRAD_ITS ---
Addendum created by Aidee Gunter MD on 01/05/2022 5:10:59 PM EST: THIS REPORT CONTAINS FINDINGS THAT MAY BE CRITICAL TO PATIENT CARE. The findings were verbally communicated via telephone conference with Espinoza Ortiz at 5:09 PM EST on 01/05/2022. The findings were acknowledged and understood. Initial report created on 01/05/2022 5:10:44 PM EST: PROCEDURE INFORMATION: Exam: XR Chest Exam date and time: 01/05/2022 4:18 PM Age: 56 years old Clinical indication: Device placement; Other: Tube placement TECHNIQUE: Imaging protocol: Radiologic exam of the chest. Views: 1 view. COMPARISON: CR XR PORTABLE CHEST AP 19/06/2021 15:49 FINDINGS: Tubes, catheters and devices: ET tube is directed at the right mainstem bronchus and should be repositioned. Her EKG wires overlie the chest. Lungs: Increased markings in the retrocardiac region bilaterally may represent atelectasis. Pleural spaces: Unremarkable. No pleural effusion. No pneumothorax. Heart/Mediastinum: Cardiomegaly. Bones/joints: Unremarkable for patient's age. IMPRESSION: 1. ET tube tip is directed into the right mainstem bronchus. Recommend repositioning. 2. Bibasilar atelectasis suspected. THIS REPORT CONTAINS FINDINGS THAT MAY BE CRITICAL TO PATIENT CARE. The findings were verbally communicated via telephone conference with Espinoza Ortiz at 5:09 PM EST on 01/05/2022. The findings were acknowledged and understood. Dictated and Authenticated by: Aidee Gunter MD. Ordering:AL Doran MD
[2022-01-05 17:49] LABS: Source Nasal/Nares
[2022-01-05 17:57] LABS: HCO3 10 mmol/L (22-26); pCO2 54 mmHg (35-45); pO2 224 mmHg (80-105); sO2 99 % (95-98); tCO2 11 mmol/L (23-27)
[2022-01-05 17:58] LABS: FIO2 75 %; Site Right Radial
[2022-01-05 18:00] LABS: pH 6.88 (7.35-7.45)
[2022-01-05 18:10] LABS: Anion Gap 22.4 mmol/L (3-11); BUN 38 mg/dL (7-18); CO2 15.6 mmol/L (21.0-32.0); Calcium 6.8 mg/dL (8.5-10.1); Chloride 96 mmol/L (98-107); Estimated GFR 11.18 (mL/min/1.73m2); Glucose 239 mg/dL (74-106); Sodium 134 mmol/L (136-145)
[2022-01-05 18:14] LABS: CREATININE 5.6 mg/dL (0.70-1.30)
[2022-01-05 18:18] LABS: COVID-19 PCR Negative (Negative)
--- NOTE | 2022-01-05 18:45 | DI.RAD_ITS ---
Exam(s) XR PORTABLE CHEST AP EXAM: XR PORTABLE CHEST AP CLINICAL HISTORY: tube placement. TECHNIQUE: 2D digital imaging was performed. COMPARISON: CR,XR XR PORTABLE CHEST AP from 01/05/2022 FINDINGS: Single AP portable view. Patient remains intubated. Distal tip of the endotracheal tube is now just above the milton. There is also the looped catheter projected over the midline, possibly an NG tube which is looped upon itse lf and will require repositioning at it is not in the stomach, instead coiled in the upper esophagus. Heart size is upper normal. The mediastinum is not widened. Chest leads and cardiac pads again note d. Lungs remain clear. No infiltrates nor obvious pleural effusions. No pneumothorax. No pneumomedias tinum. IMPRESSION: No acute pulmonary findings on this single AP portable view of the chest.There is a loop catheter whi ch may be an abnormally positioned NG tube. If this patient has an NG tube and requires repositionin g into the stomach. It is now looped in the upper esophagus. ET tube as above DATA REPOSITORY: RADIATION DOSE DELIVERED:
[2022-01-05] MEDS: Furosemide 40 MG/4 ML VIAL IVP (18:47)
[2022-01-05] MEDS: Dextrose 50%-Water 25 GM/50 ML SYR IVP (18:48)
--- NOTE | 2022-01-05 19:17 | DI.VRAD_ITS ---
PROCEDURE INFORMATION: Exam: XR Chest Exam date and time: 01/05/2022 6:49 PM Age: 56 years old Clinical indication: Device placement; Ett placement (vent status); Additional info: Tube placement TECHNIQUE: Imaging protocol: Radiologic exam of the chest. Views: 1 view. COMPARISON: XR PORTABLE CHEST AP 01/05/2022 4:18 PM FINDINGS: Tubes, catheters and devices: Endotracheal tube tip terminates 4 cm above the milton. Lungs: No focal areas of consolidation. Pleural spaces: No pleural effusion. No pneumothorax. Heart/Mediastinum: Cardiac and mediastinal silhouettes are unremarkable. Bones/joints: No acute osseus lesion or fracture. IMPRESSION: Endotracheal tube tip terminates 4 cm above the milton. Dictated and Authenticated by: Isreal Urban MD. Ordering:AL Doran MD
[2022-01-05] MEDS: VANCOMYCIN 1,000 MG in Normal Saline 250 ML 166.6666 MG IVPB (19:37)
[2022-01-05] MEDS: Insulin REGULAR-Human 100 UNITS/ML UNIT 20 UNITS SC (19:49)
[2022-01-11 09:11] LABS: pH (Venous) 6.79 (7.31-7.41)
== END 2022-01-05 20:16 | disposition short-term general hospital (02) ==
PROVIDERS: Emergency Provider Emergency Medicine; PCP Internal Medicine
DX: I46.9 Cardiac arrest, cause unspecified (principal); E87.6 Hypokalemia; I10 Essential (primary) hypertension; E11.9 Type 2 diabetes mellitus without complications; R79.89 Other specified abnormal findings of blood chemistry; Z20.822 Contact with and (suspected) exposure to COVID-19
CPT/HCPCS: 36410; 36415; 36556; 80048; 80053; 80307; 82805; 87040; 87635; 93005; 94644; 96361; 96365; 96367; 96372; 96375; 99291; 99292; 36600; 70450; 71045; 72125; 80320; 80329; 81003; 81015; 83605; 83735; 84439; 84443; 84484; 85025; 87086; 93010; J0171; J0610; J1940; J2543; J2704; J7613